=== PATIENT | female | born 1960 | race Caucasian/White ===

== ENCOUNTER 2017-05-26 18:24 | Emergency (ER) | payer BC ==
[~2017-05-26] VITALS: Ht 165.1 cm; Wt 55.0 kg
[~2017-05-26 18:24] MED LIST: CENE0.62 PO; CLON1 PO
[2017-05-26 18:27] VITALS: BP 128/80; PULSE 86; RESP 17; TEMP 98.3; O2SAT 97
--- NOTE | 2017-05-26 20:39 | PD ---
HPI Chief Complaint: GI Complaint Time Seen by Provider: 20:25 Travel History International Travel<30 days: No Contact w/Intl Traveler<30days: No Traveled to known affect area: No History of Present Illness HPI This is a 56-year-old female history of clotilde bella, who presents for evaluation of abdominal pain. Symptoms started 6 days ago. The pain is in the epigastric region and it is intermittent, worse with meals and when she takes her medication. She describes it as a tightness. She does also endorse mild dyspnea on exertion for the past few months. She reports that prior to the start of the abdominal pain she was having some vague intermittent pain in the right shoulder for a few months. The pain persisted and this is what prompted her to come here for evaluation. She is concerned that there may be a cardiac etiology. She denies any chest pain, nausea or vomiting, diarrhea, constipation , dysuria, flank pain, fevers or chills. She reports a history of total hysterectomy, cholecystectomy and appendectomy. No personal or family history of coronary artery disease. Denies history of hypertension, diabetes, hyperlipidemia. She drinks alcohol occasionally. Denies tobacco use. No other complaints. PFSH Past Medical History Cancer: No Diabetes: No Glaucoma: No Hepatitis: No Hiatal Hernia: No Hypertension: No Migraines: Yes Thyroid Disease: No ?: Not Ectopic : Yes Dilation and Curettage (D&C): Yes Past Surgical History Abdominal Surgery: Yes ([place]) Section: Yes Gynecologic Surgery: Yes (D&C, ECTOPIC , C SECTION, HHYSTERECTOMY) Hysterectomy: Yes Other Surgery: Yes (BREAST IMPLANTS) Social History Alcohol Use: Yes (OCC BEER) Tobacco Use: No Substance Use: No Allergies-Medications (Allergen,Severity, Reaction): Coded Allergies: Codeine (Verified Allergy, Severe, 05/10/15) Uncoded Allergies: can't breathe (Adverse Reaction, Severe, 08/04/08) Reported Meds & Prescriptions Reported Meds & Active Scripts Active Protonix (Pantoprazole Sodium) 20 Mg Tab 20 Mg PO DAILY Reported Medroxyprogesterone Aceta (Medroxyprogesterone Acetate Mi) 1 Pow Pow 1 EACH EYE QID PRN Restasis Opth 0.05% (Cyclosporine Opth 0.05%) 0.05% Emul 1 Drop EACH EYE BID Cevimeline (Cevimeline HCl) 30 Mg Cap 30 Mg PO TID Premarin (Estrogens Conjugated) 0.625 Mg Tab 0.625 Mg PO DAILY Leflunomide 20 Mg Tab 20 Mg PO DAILY Clonazepam 1 Mg Tab 1 Mg PO HS Review of Systems Except as stated in HPI: all other systems reviewed are Neg Physical Exam Narrative GENERAL: Well-developed well-nourished female in no acute distress SKIN: Warm and dry. HEAD: Atraumatic. Normocephalic. EYES: Pupils equal and round. No scleral icterus. No injection or drainage. ENT: No nasal bleeding or discharge. Mucous membranes pink and moist. NECK: Trachea midline. No JVD. CARDIOVASCULAR: Regular rate and rhythm. No murmur appreciated. RESPIRATORY: No accessory muscle use. Clear to auscultation. Breath sounds equal bilaterally. GASTROINTESTINAL: Abdomen soft, mild epigastric tenderness without guarding. MUSCULOSKELETAL: No obvious deformities. No edema. NEUROLOGICAL: Awake and alert. No obvious cranial nerve deficits. Motor grossly within normal limits. Normal speech. PSYCHIATRIC: Appropriate mood and affect; insight and judgment normal. Data Data Last Documented VS Vital Signs Date Time Temp Pulse Resp B/P Pulse Ox O2 Delivery O2 Flow Rate FiO2 05/26/17 21:36 98.3 59 16 160/71 99 Room Air Orders Electrocardiogram (05/26/17 ) Complete Blood Count With Diff (05/26/17 20:34) Comprehensive Metabolic Panel (05/26/17 20:34) Lipase (05/26/17 20:34) Urinalysis - C+S If Indicated (05/26/17 20:34) Ct Abd/Pel W Iv Contrast(Rout) (05/26/17 20:34) Iv Access Insert/Monitor (05/26/17 20:34) Ecg Monitoring (05/26/17 20:34) Oximetry (05/26/17 20:34) Sodium Chloride 0.9% Flush (Ns Flush) (05/26/17 20:45) Electrocardiogram (05/26/17 20:34) B-Type Natriuretic Peptide (05/26/17 20:34) Ckmb (Isoenzyme) Profile (05/26/17 20:34) Troponin I (05/26/17 20:34) Chest, Single Ap (05/26/17 20:34) Pantoprazole Inj (Protonix Inj) (05/26/17 20:45) Al-Mag Hy-Si 40-40-4 Mg/Ml Liq (Mag-Al P (05/26/17 20:45) Lidocaine 2% Viscous (Xylocaine 2% Visco (05/26/17 20:45) CKMB (05/26/17 21:25) CKMB% (05/26/17 21:25) Sodium Chloride 0.9% Flush (Ns Flush) (05/26/17 22:45) Piperacil-Tazo 4.5 Gm Premix (Zosyn 4.5 (05/26/17 22:45) Azithromycin Inj (Zithromax Inj) (05/26/17 22:45) Iohexol 350 Inj (Omnipaque 350 Inj) (05/26/17 22:59) Labs Laboratory Tests Test 05/26/17 05/26/17 21:25 21:30 White Blood Count 4.2 TH/MM3 Red Blood Count 4.07 MIL/MM3 Hemoglobin 12.4 GM/DL Hematocrit 36.1 % Mean Corpuscular Volume 88.7 FL Mean Corpuscular Hemoglobin 30.4 PG Mean Corpuscular Hemoglobin 34.3 % Concent Red Cell Distribution Width 13.0 % Platelet Count 169 TH/MM3 Mean Platelet Volume 8.6 FL Neutrophils (%) (Auto) 40.0 % Lymphocytes (%) (Auto) 45.5 % Monocytes (%) (Auto) 12.7 % Eosinophils (%) (Auto) 1.0 % Basophils (%) (Auto) 0.8 % Neutrophils # (Auto) 1.7 TH/MM3 Lymphocytes # (Auto) 1.9 TH/MM3 Monocytes # (Auto) 0.5 TH/MM3 Eosinophils # (Auto) 0.0 TH/MM3 Basophils # (Auto) 0.0 TH/MM3 CBC Comment DIFF FINAL Differential Comment Sodium Level 140 MEQ/L Potassium Level 3.8 MEQ/L Chloride Level 107 MEQ/L Carbon Dioxide Level 26.8 MEQ/L Anion Gap 6 MEQ/L Blood Urea Nitrogen 14 MG/DL Creatinine 0.89 MG/DL Estimat Glomerular Filtration 66 ML/MIN Rate Random Glucose 89 MG/DL Calcium Level 9.2 MG/DL Total Bilirubin 0.7 MG/DL Aspartate Amino Transf 22 U/L (AST/SGOT) Alanine Aminotransferase 20 U/L (ALT/SGPT) Alkaline Phosphatase 60 U/L Total Creatine Kinase 107 U/L Creatine Kinase MB 0.7 NG/ML Troponin I LESS THAN 0.02 NG/ML B-Type Natriuretic Peptide 23 PG/ML Total Protein 6.5 GM/DL Albumin 3.3 GM/DL Lipase 182 U/L Urine Color YELLOW Urine Turbidity HAZY Urine pH 5.5 Urine Specific [place] 1.021 Urine Protein NEG mg/dL Urine Glucose (UA) NEG mg/dL Urine Ketones NEG mg/dL Urine Occult Blood NEG Urine Nitrite NEG Urine Bilirubin NEG Urine Urobilinogen LESS THAN 2.0 MG/DL Urine Leukocyte Esterase SMALL Urine WBC 1 /hpf Urine Squamous Epithelial 5 /hpf Cells Microscopic Urinalysis Comment CULT NOT INDICATED MDM Medical Decision Making Medical Screen Exam Complete: Yes Emergency Medical Condition: Yes Medical Record Reviewed: Yes Interpretation(s) EKG sinus rhythm CBC unremarkable Chest x-ray unremarkable Urinalysis Troponin CK CMP Lipase CT abdomen and pelvis Differential Diagnosis Pancreatitis, gastritis, colitis, peptic ulcer disease, mesenteric ischemia, angina Narrative Course 56-year-old female who has been experiencing epigastric abdominal pain that is worse with meals for the past 6 days. She reports mild dyspnea on exertion for the past few months. Plan is for basic lab work, chest x-ray, CT abdomen and pelvis. She will be placed on ECG monitoring and pulse oximetry. A 12-lead EKG was obtained. She will be given Protonix and GI cocktail. Lab work imaging studies have been reviewed and found to be unremarkable. GI cocktail did help with her pain and I suspect that it could be related to peptic ulcer disease however given her other symptoms of dyspnea on exertion for the past few months, I did offer to admit the patient into the chest pain center for serial cardiac enzymes and rule out purposes. As an alternative it would be reasonable for her to follow up with her primary care physician next week to discuss getting outpatient stress test as well as an outpatient endoscopy and she would prefer this route. She will be discharged with a short course of Protonix. Procedures EKG Prior to Arrival: Yes Diagnosis Primary Impression: Epigastric abdominal pain Referrals: Drake Angel MD Additional Instructions: Medication as prescribed. Follow-up with Dr. Angel next week. Return for any emergent medical conditions. Med/Other Pt SpecificInfo: Prescription(s) given Scripts Pantoprazole (Protonix)20 Mg Tab20 Mg PO DAILY #30 TAB Ref 0 Prov:David Merlos MD 05/27/17 Disposition: 01 DISCHARGE HOME Condition: Stable Francois Rodríguez May 26, 2017 20:38
[2017-05-26] MEDS ORDERED: ESTR.625 PO (20:43)
[2017-05-26] MEDS ORDERED: CEVI1CAP PO (20:43)
[2017-05-26] MEDS ORDERED: REST0.05 EACH EYE (20:43)
[2017-05-26] MEDS ORDERED: [UNRECOGNIZED DRUG - CODE] EACH EYE (20:43)
[2017-05-26] MEDS ORDERED: LEFL1TAB3 PO (20:43)
[2017-05-26] MEDS ORDERED: CLON1TAB PO (20:43)
[2017-05-26] MEDS ORDERED: LIDOCAINE VISCOUS 2% SOLN 15 ML UDC PO ONE (20:45)
[2017-05-26] MEDS ORDERED: PANTOPRAZOLE SODIUM 40 MG VIAL IVP ONE (20:45)
[2017-05-26] MEDS ORDERED: SODIUM CHLORIDE 0.9% FLUSH 10 ML FLUSH IV FLUSH PRN (20:45)
[2017-05-26] MEDS ORDERED: ALUMINUM/MAGNESIUM/SIMETH 30 ML CUP PO ONE (20:45)
--- NOTE | 2017-05-26 21:19 | RADRPT ---
EXAM DATE/TIME: 05/26/2017 20:48 [facility] COMPARISON: No previous studies available for comparison. INDICATIONS : Short of breath. MEDICAL HISTORY : None. SURGICAL HISTORY : None. ENCOUNTER: Initial ACUITY: 2 days PAIN SCORE: 8/10 LOCATION: Bilateral chest FINDINGS: A single view of the chest demonstrates the lungs to be symmetrically aerated without evidence of mas s, infiltrate or effusion. The cardiomediastinal contours are unremarkable. Osseous structures are intact. CONCLUSION: The lungs are clear. Chacorta Lundberg MD on May 26, 2017 at 21:17 Board Certified Radiologist. This report was verified electronically.
[2017-05-26 21:36] VITALS: BP 160/71; PULSE 59; RESP 16; TEMP 98.3; O2SAT 99
[2017-05-26 21:40] LABS: AUTOMATED NEUTROPHIL # 1.7 TH/MM3 (1.8-7.7); BASOPHIL % 0.8 % (0.0-2.0); HEMATOCRIT 36.1 % (35.0-46.0); HEMO FLAGS DIFF FINAL; LYMPH % 45.5 % (9.0-44.0); LYMPHOCYTE # 1.9 TH/MM3 (1.0-4.8); MEAN CELL VOLUME 88.7 FL (80.0-100.0); MEAN CORPUSCULAR HEMOGLOBIN 30.4 PG (27.0-34.0); MEAN CORPUSCULAR HGB CONC 34.3 % (32.0-36.0); MONO % 12.7 % (0.0-8.0); PLATELET COUNT 169 TH/MM3 (150-450); RED BLOOD COUNT 4.07 MIL/MM3 (4.00-5.30); WHITE BLOOD COUNT 4.2 TH/MM3 (4.0-11.0)
[2017-05-26 21:48] LABS: BLOOD, URINE NEG (NEG); COMMENT (UR) CULT NOT INDICATED; CULTURE IF INDICATED CULT NOT INDICATED; GLUCOSE,URINE NEG (NEG); KETONE, URINE NEG (NEG); NITRITE,URINE NEG (NEG); PH, URINE 5.5 (5.0-8.5); SQUAMOUS EPITHELIAL CELL URINE 5 /hpf (0-5); URINE COLOR YELLOW (YELLW/STRAW)
[2017-05-26 22:09] LABS: ANION GAP 6 MEQ/L (5-15); AST (GOT) 22 U/L (15-37); BICARBONATE 26.8 MEQ/L (21.0-32.0); BLOOD UREA NITROGEN 14 MG/DL (7-18); CHLORIDE 107 MEQ/L (98-107); GLOMERULAR FILTRATION RATE 66 ML/MIN (>89); POTASSIUM 3.8 MEQ/L (3.5-5.1); SODIUM (NA) 140 MEQ/L (136-145)
[2017-05-26 22:10] LABS: ALT (GPT) 20 U/L (10-53)
[2017-05-26 22:14] LABS: ALKALINE PHOSPHATASE 60 U/L (45-117); CREATINE KINASE 107 U/L (26-192); TOTAL BILIRUBIN ADULT 0.7 MG/DL (0.2-1.0)
[2017-05-26 22:27] LABS: CKMB 0.7 NG/ML (0.5-3.6)
[2017-05-26] MEDS ORDERED: PIPERACIL-TAZO 4.5 GM PREMIX 100 ML IV ONE (22:45)
[2017-05-26] MEDS ORDERED: SODIUM CHLORIDE 0.9% FLUSH 10 ML FLUSH IVF PRN (22:45)
[2017-05-26] MEDS ORDERED: AZITHROMYCIN INJ 500 MG in SODIUM CHLOR 0.9% 250 ML INJ 250 ML IV ONE (22:45)
[2017-05-26] MEDS ORDERED: IOHEXOL 350 MG/ML 10 ML VIAL (for RAD DIAG) IV ONE (22:59)
--- NOTE | 2017-05-26 23:33 | RADRPT ---
EXAM DATE/TIME: 05/26/2017 22:55 [facility] COMPARISON: No previous studies available for comparison. INDICATIONS : Epigastric pain X one week. IV CONTRAST: 4.76 cc Omnipaque 350 (iohexol) IV ORAL CONTRAST: No oral contrast ingested. RADIATION DOSE: 4.76 CTDIvol (mGy) MEDICAL HISTORY : None SURGICAL HISTORY : section. Cholecystectomy.ectopic , D&C ENCOUNTER: Initial ACUITY: 1 week PAIN SCALE: 6/10 LOCATION: abdomen TECHNIQUE: Volumetric scanning of the abdomen and pelvis was performed. Using automated exposure control and ad justment of the mA and/or kV according to patient size, radiation dose was kept as low as reasonably achievable to obtain optimal diagnostic quality images. DICOM format image data is available electro nically for review and comparison. FINDINGS: Examination of the lung bases demonstrates no abnormality. No pleural fluid is identified. No pulmona ry nodules are present. The liver and spleen are normal in size and no focal defects are identified. The gallbladder is absent. The pancreas demonstrates normal contour without evidence of mass or ducta l dilatation. The intrahepatic ducts and common bile duct are prominent which may reflect reservoir e ffect. The adrenal glands and kidneys appear normal bilaterally. No hydronephrosis or mass lesions ar e identified. Examination of the pelvis demonstrates no evidence of free fluid or pelvic mass. No abnormally enlarg ed inguinal or retroperitoneal lymph nodes are present. The bladder is unremarkable. CONCLUSION: 1. No evidence of acute abdominal or pelvic process. No masses are identified. Ross Fonseca MD on May 26, 2017 at 23:26 Board Certified Radiologist. This report was verified electronically.
[2017-05-27] MEDS ORDERED: PANT20 PO (00:05)
--- NOTE | 2017-05-27 13:40 | EKG ---
Date Performed: 05/26/2017 Time Performed: 18:51:29 PTAGE: 56 years EKG: Sinus rhythm POSSIBLE RIGHT VENTRICULAR CONDUCTION DELAY BORDERLINE ECG PREVIOUS TRACING : 04/21/2010 14.26 Since previous tracing, no significant change noted DOCTOR: Wandy Choi Interpretating Date/Time 05/27/2017 13:37:54
== END 2017-05-27 01:05 | disposition home or self-care (01) ==
LOC: NEPD 18:24
DX: R10.13 Epigastric pain (principal); Z90.49 Acquired absence of other specified parts of digestive tract; M35.00 Sjogren syndrome, unspecified; I73.00 Raynaud's syndrome without gangrene
CPT/HCPCS: 71010; 74177; 80053; 81001; 82550; 82552; 83690; 83880; 84484; 85025; 93005; 96374; 96375; 99285; C9113; J2543; Q9967

== ENCOUNTER → 2017-07-18 | Day surgery (SDC) | payer BC ==
[~2017-07-18] VITALS: Ht 165.1 cm; Wt 51.1 kg
[~2017-07-18] MED LIST changes: +ACETAMINOPHEN 1000 MG/100 ML 100 ML IV ONE; +ACETAMINOPHEN 1000 MG/100 ML VIAL IV ONE; +ACETAMINOPHEN/HYDROcodone 325 MG/5 MG TAB PO PRN; +ALPR0.5T3 PO; +APREPITANT 40 MG CAP ONE; +BUPIVACAINE/EPINEPHRINE 0.25% 50 ML VIAL ONE; -CENE0.62 PO; +CEVI1CAP PO; +CHLORHEXIDINE GLUCONATE 2 % 1 PACK (2 CLOTHS) TOPICAL PRN; -CLON1 PO; +CLON1TAB PO; +DEXAMETHASONE SOD PHOS 4 MG/ML VIAL IV ONE; +DO NOT ADM ANY ANTICOAGULANT DRUGS PRN; +ERYT250T13 PO; +ESTR.625 PO; +FAMOTIDINE 20 MG/2 ML VIAL ONE; +FOLI1TAB6 PO; +HYDROmorphone HCL PF 2 MG/ML VIAL ONE; +INSULIN HUMAN REGULAR 1,000 UNITS/10 ML VIAL SQ PRN; +LACTATED RINGER'S 1000 ML INJ 1,000 ML IV ONE; +LACTATED RINGER'S 1000 ML IV PRN; +LEFL1TAB3 PO; +LIDOCAINE HCL 1% PF 5 ML AMPULE OTHER ONE; +METH2.5T PO; +METOPROLOL TARTRATE 25 MG TAB PO PRN; +MIDAZOLAM HCL 2 MG/2 ML VIAL ONE; +MIDAZOLAM HCL 5 MG/5 ML VIAL IV ONE; +MONT10TA4 PO; +ONDANSETRON HCL 4 MG/2 ML VIAL IV PUSH ONE; +ONDANSETRON HCL 4 MG/2 ML VIAL IV PUSH PRN; +POVIDONE IODINE 5% (ANTISEPSIS KIT) 4 APPLICATIONS EACH NARE PRN; +PROPOFOL 200 MG/20 ML AMP IV ONE; +REST0.05 EACH EYE; +ROCURONIUM INJ 50 MG/5 ML SYRINGE IV PUSH ONE; +SODIUM CHLORID 0.9% 500 ML IV PRN; +SUGAMMADEX SODIUM 200 MG/2 ML VIAL IV PUSH ONE; +[UNRECOGNIZED DRUG - CODE] EACH EYE; +ceFAZolin 2 GM PREMIX 50 ML IV SCH; +ceFAZolin 2 GM PREMIX 50 ML ONE
--- NOTE | 2017-07-18 17:08 | PD.OP ---
Operative Report Date of Surgery: Jul 18, 2017 Preoperative Diagnosis: abdominal pain, celiac artery compression syndrome Postoperative Diagnosis: same Procedure: lap division of median arcuate ligament Anesthesia: general Surgeon: Ross Wang Bulb Weeder(s): Melvin Ponce MS3 Operation and Findings: tight band at origin of celiac artery divided. EBL minimal. Ross Wang MD Jul 18, 2017 17:08
[2017-07-18 18:35] VITALS: BP 126/75; PULSE 85; RESP 20; O2SAT 97
--- NOTE | 2017-07-18 19:34 | MP ---
cc: RADHA MENDOZA M.D. 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 PROCEDURE Laparoscopic division of median arcuate ligament. SURGEON Dr. Radha Rockwell SAP BI ARCHITECT Karly Ponce MS-3 ANESTHESIA General INDICATIONS This is a very pleasant 56-year-old woman, a patient of Dr. Kurtis Alvares who has suffered from chronic abdominal pain that tends to be postprandial in nature and related to exercise activities. She was discovered to have abdominal bruit in the epigastric area. A CT angiogram demonstrated moderate compression of the origin of the celiac artery consistent with celiac artery compression syndrome. Discussion of options for treatment were made and she elected to proceed with surgical therapy. INTRAOPERATIVE FINDINGS Tight band of tissue consistent with median arcuate ligament compression of the celiac artery origin. The tight band was divided with harmonic scalpel. ESTIMATED BLOOD LOSS Minimal. DESCRIPTION OF PROCEDURE IN DETAIL The patient identified as Verna Xie, taken to the operating room and placed in the supine position. Sequential compression devices were placed on bilateral lower extremities. Following induction of adequate general endotracheal anesthesia the patient's abdomen was prepped and draped in usual sterile fashion with Betadine. A time-out procedure was performed. Following completion of time-out procedure to everyone's satisfaction within the room, 0.25% Marcaine with epinephrine was placed at each incision site. In the superior umbilicus a 1.0-1.5 cm vertical incision was made with scalpel and dissection continued to the posterior level of midline fascia in the supraumbilical position. The umbilicus was retracted anteriorly. The fascia was incised and entry into peritoneal cavity was facilitated with a hemostat. The applied medical balloon 5 mm trocar was placed into the peritoneal cavity, its balloon inflated to insufflation to level of 15 mmHg ensued. The patient was placed in a steep reverse Trendelenburg position. Four upper abdominal 5 mm trocars were then placed in the peritoneal cavity under direct laparoscopic view after incision of the skin with a scalpel. A carlos flex liver retractor was placed beneath the left lateral lobe of the liver holding it anteriorly with a robot arm. The patient's skin was padded with a laparotomy pad beneath the trocar in that location. The attention was turned to opening the gastrohepatic ligament which was done with a harmonic scalpel. This allowed for identification of the right side diaphragmatic crura and the peritoneum was scored at this location. The diaphragmatic crura overlying the anterior abdominal aorta was identified and the diaphragmatic fibers were divided with the harmonic scalpel. Dissection continued along the anterior wall of the aorta inferiorly. Due to the patient's relative thin nature, the anatomy was fairly easy to discern. Left gastric and common hepatic and splenic arterial branches were identified and this led to the celiac artery origin overlying the aorta. Muscular bands and a tight band over the origin of the celiac artery were bluntly dissected free of the celiac artery using the [place] dissector. The harmonic scalpel was then to used to divide this tight band. No bleeding occurred and no further muscular fibers were present between the aorta and the origin of the celiac artery. There was no evidence of bleeding. Local anesthetic was placed in the location of the dissection of the muscular fibers off of the aorta and photographs were taken of the completed surgery. The carlos flex liver retractor was removed. There was no evidence of injury to the liver. Trocars removed under direct visualization. There was no evidence of bleeding from trocar sites. The abdomen was actively desufflated through the supraumbilical port which was then removed. The supraumbilical fascial incision was closed with a single 0 Vicryl suture which was inverted and the skin incisions were approximated with 4-0 Monocryl subcuticular sutures. Dressings were applied with Mastisol and half inch brown Steri-Strips. The patient tolerated the procedure without apparent complication. Sponge, needle and instrument counts were correct at the end of the case. MD HUMBERTO Vu/NELIDA /5:03 PM /7:18 PM
== END | disposition home or self-care (01) ==
LOC: HSDC 12:53
PROVIDERS: ATTEND Surgery Trauma Surgery
DX: I77.4 Celiac artery compression syndrome (principal); G89.29 Other chronic pain; R10.9 Unspecified abdominal pain; M35.00 Sjogren syndrome, unspecified; M19.019 Primary osteoarthritis, unspecified shoulder
CPT/HCPCS: 00790; 49329; J0131; J0690; J1100; J1170; J2250; J2405; J3010; J7120; J8501